=== PATIENT | female | born 2000 | race Caucasian/White ===

== ENCOUNTER 2019-03-02 11:28 | Inpatient (IN) ==
[2019-03-02] MEDS ORDERED: methylPREDNISolone 125 MG/2 ML VIAL IV STA (12:03)
[2019-03-02] MEDS ORDERED: ALBUT/IPRATROP 3MG/0.5MG NEB 3 ML VIAL INH STA (12:03)
[2019-03-02] MEDS ORDERED: ALBUT/IPRATROP 3MG/0.5MG NEB 3 ML VIAL NEB STA (12:37)
[2019-03-02] MEDS ORDERED: LEVALBUTEROL HCL 1.25 MG/3 ML NEB NEB STA (12:37)
[2019-03-02 13:07] LABS: Basophils # (auto) 0.03 K/uL (0-0.2); Basophils % (auto) 0.2 %; Eosinophils # (auto) 0.01 K/uL (0-0.5); Eosinophils % (auto) 0.1 %; Hematocrit (blood only) 38.4 % (37-47); Hemoglobin 13.1 g/dL (12.0-16.0); Immature Granulocytes # (auto) 0.06 K/uL (0.00-0.02); Immature Granulocytes % (auto) 0.5 %; Lymphocytes % (auto) 11.5 %; Mean Corpuscular Hgb Conc 34.1 g/dL (32-36); Mean Corpuscular Volume 87.9 fL (80-100); Mean Platelet Volume 9.2 fL (7.4-10.4); Monocytes # (auto) 0.68 K/uL (0.11-0.59); Monocytes % (auto) 5.2 %; Neutrophils # (auto) 10.81 K/uL (1.4-6.5); Neutrophils % (auto) 82.5 %; Platelet Count 255 K/uL (130-400); RDW Coefficient of Variation 13.1 % (11.5-14.5); RDW Standard Deviation 42.2 fL (36.4-46.3); Red Blood Count 4.37 M/uL (4.2-5.4); White Blood Count 13.09 K/uL (4.8-10.8)
[2019-03-02] MEDS ORDERED: ACETAMINOPHEN 1,000 MG/100 ML VIAL IV STA (13:08)
[2019-03-02 13:21] LABS: Partial Thromboplastin Time 28.1 Seconds (21.0-31.0); Prothrombin Time 9.9 Seconds (9.0-12.0)
--- NOTE | 2019-03-02 13:22 | Emergency Department Note ---
History of Present Illness General Chief complaint: Fever Stated complaint: sob Time Seen by Provider: 03/02/19 11:48 History of Present Illness Maximum Pain Intensity: 2 18-year-old female who presents to the emergency department with complaint of sore throat, fever, productive cough and shortness of breath. The patient was referred here from [facility] for further evaluation. The patient reports that she had a fever this morning at her appointment. A chest x -ray was performed, and the patient was told that she may have a little bit of fluid in the lung. The patient does not recall where it was. She reports that lab work was also performed, and was told that she had an elevated d-dimer. They became concerned for a blood clot in the lung, and called 911 for transport to the emergency department. The patient does take oral contraceptives. She denies tobacco use. She has not had any other recent prolonged inactivity or travel. She has not noticed any swelling of the legs, nor has she been coughing up blood. The patient reports multiple sick contacts. The patient reports that she started to get sick last weekend, over 1 week ago. Her symptoms started with generalized sore throat that then developed into a cough last Saturday, or 5 days ago. The patient denies any history of asthma or other lung disease. She has not had any prior history of blood clots. She denies history of heart disease. She currently rates her discomfort a 2 out of 10. The patient has not taken any [id number]-huxbrma medications for her symptoms. Home Medications Home Medications Medication Instructions Recorded Confirmed Type Control 1 tab PO DAILY 03/02/19 03/02/19 History Allergies Allergy/AdvReac Type Severity Reaction Status Date / Time No Known Allergies Allergy Unverified 03/02/19 13:06 Past Med/Surg History Medical History PCOS (polycystic ovarian syndrome) Surgical History No significant past surgical history Family History Grandfather (Maternal) Stroke Social History marital status: Single current occupational status: student Feels Safe at Home: Yes Smoking Status: Never smoker Hx Alcohol Use: No Hx Substance Use: No Review of Systems 10 system review was performed and was negative except for pertinent positives and negatives as indicated in history of present illness Physical Exam Vital Signs Vital Signs - 24 hr 03/02/19 11:28 03/02/19 12:41 03/02/19 13:25 Temperature 38.2 C H Temperature Source Oral Sepsis Recent Fever Within 48 Hours No Sepsis Action Taken by Nursing No Action Required Pulse Rate 138 H Pulse Rate [Right Radial] 131 H 130 H Pulse Rate from SpO2 Sensor Pulse Rhythm [Right Radial] Pulse Strength [Right Radial] Respiratory Rate 24 18 24 Respiratory Effort / Characteristics Non-Labored Non-Labored Spontaneous Non-Labored Respiratory Depth Normal Normal Respiratory Pattern Blood Pressure 136/85 Blood Pressure [Left Arm] 124/80 Blood Pressure Mean 102 Blood Pressure Mean [Left Arm] 94 Blood Pressure Position [Left Arm] Pulse Oximetry 96 100 97 Oxygen Delivery Method Room Air Room Air Room Air 03/02/19 15:21 03/02/19 16:00 03/02/19 16:01 Temperature 36.8 C Temperature Source Oral Sepsis Recent Fever Within 48 Hours Sepsis Action Taken by Nursing Pulse Rate 110 H 106 H Pulse Rate [Right Radial] 103 H Pulse Rate from SpO2 Sensor 111 H 107 H Pulse Rhythm [Right Radial] Regular Pulse Strength [Right Radial] Normal Respiratory Rate 20 34 H 25 H Respiratory Effort / Characteristics Non-Labored Spontaneous Respiratory Depth Normal Respiratory Pattern Regular Blood Pressure 117/79 Blood Pressure [Left Arm] 124/83 Blood Pressure Mean 91 Blood Pressure Mean [Left Arm] 96 Blood Pressure Position [Left Arm] Lying Pulse Oximetry 96 96 96 Oxygen Delivery Method Room Air Room Air Room Air 03/02/19 16:30 03/02/19 16:31 03/02/19 17:00 Temperature Temperature Source Sepsis Recent Fever Within 48 Hours Sepsis Action Taken by Nursing Pulse Rate 107 H 107 H 105 H Pulse Rate [Right Radial] Pulse Rate from SpO2 Sensor 110 H 105 H Pulse Rhythm [Right Radial] Pulse Strength [Right Radial] Respiratory Rate 32 H 28 H 26 H Respiratory Effort / Characteristics Respiratory Depth Respiratory Pattern Blood Pressure 124/79 123/77 Blood Pressure [Left Arm] Blood Pressure Mean 94 92 Blood Pressure Mean [Left Arm] Blood Pressure Position [Left Arm] Pulse Oximetry 96 96 97 Oxygen Delivery Method Room Air Room Air Room Air 03/02/19 17:01 Temperature Temperature Source Sepsis Recent Fever Within 48 Hours Sepsis Action Taken by Nursing Pulse Rate 108 H Pulse Rate [Right Radial] Pulse Rate from SpO2 Sensor Pulse Rhythm [Right Radial] Pulse Strength [Right Radial] Respiratory Rate 26 H Respiratory Effort / Characteristics Respiratory Depth Respiratory Pattern Blood Pressure Blood Pressure [Left Arm] Blood Pressure Mean Blood Pressure Mean [Left Arm] Blood Pressure Position [Left Arm] Pulse Oximetry 98 Oxygen Delivery Method Room Air CONSTITUTIONAL: Healthy and well nourished. Alert and oriented X 3. Patient does appear acutely ill or toxic. HEENT: Normocephalic, atraumatic. Pupils equal, round and reactive. Ears and nares are clear. Examination of the oropharynx shows minimal posterior pharyngeal erythema without tonsillar hypertrophy or exudates. NECK: Full active range of motion without discomfort. LYMPHATICS: No cervical chain adenopathy. RESPIRATORY: Clear to auscultation bilaterally with no wheezing, crackles, rhonchi or stridor. Patient appears in mild respiratory distress, and is not able to complete full sentences without taking a breath. CARDIOVASCULAR: Tachycardic with no obvious murmurs, rubs or gallops. GASTROINTESTINAL: Bowel sounds present in all quadrants. MUSCULOSKELETAL: Full range of motion of all joints without discomfort. No p eripheral edema noted. INTEGUMENTARY: No rash or other significant dermatologic conditions noted. HEMATOLOGIC: No ecchymosis or petechiae. PSYCHIATRIC: Positive affect. NEUROLOGIC: No focal neurologic deficits noted. Course Patient history and physical exam were performed. Nurse's notes were reviewed. Vital signs were reviewed to show an oral temperature of 38.2 C. She is also tachycardic at 152 bpm, and respiratory rate of 24 bpm. Her O2 saturation on room air is 96%. The patient does appear in mild respiratory distress. IV access was established, and labs were drawn. The patient was administered a unit dose DuoNeb treatment with moderate relief of symptoms. She was also hydrated with a liter normal saline, and administered IV Tylenol for her fever. After orders were placed, but I was presented with lab work from [facility], showing a mild leukocytosis with a white count of 12.6. Platelet count was normal at 267. Review of additional lab work from the emergency department shows a similar leukocytosis with left shift and bandemia. She is mildly hyponatremic at 132. [id number] lactate and troponin are normal. Urinalysis is suggestive of infection. Urine cultures are pending. CT chest angiography shows evidence for multifocal pneumonia. No obvious filling defects consistent with pulmonary emboli are noted. Blood cultures were ordered, and the patient was administered IV Zosyn and vancomycin as recommended by Dr. Zacarias, [facility] hospitalist. Findings were also discussed with Dr. Rey, ED attending physician. I also discussed the case with the patient, as well as her mother, Elis ([phone]), who was also in agreement with admission. The patient's HEAT TREATER also contacted me via telephone conversation by me that she is currently on oral contraceptives for PCOS, which the patient did not advise me on initial exam. She wanted to make certain that the CT scan did not show any pulmonary emboli. I did explain that the CT scan does show evidence for multifocal pneumonia, with no obvious pulmonary emboli. She has requested that the patient did not take any oral contraceptives until she follows up with her upon return home during break. Please see hospitalist dictations for further treatment and final disposition. Administered Medications Vancomycin HCl 1,250 mg/ (Sodium Chloride) 525 mls @ 200 mls/hr IV NOW ONE Stop: 03/02/19 17:25 Last Admin: 03/02/19 16:32 Dose: 200 mls/hr Documented by: [id number] Ioversol (Optiray 320 125ml) 120 ml IV ONCE PRN PRN Reason: Interaction Checking Stop: 03/06/19 13:50 Last Admin: 03/02/19 13:51 Dose: 120 ml Documented by: [id number] Discontinued Medications Acetaminophen (Ofirmev) Confirm Administered Dose 1,000 mg IV .STK-MED ONE Stop: 03/02/19 13:43 Last Admin: 03/02/19 14:33 Dose: Not Given Documented by: [id number] Albuterol (Duoneb) 3 ml INH NOW STA Stop: 03/02/19 12:04 Last Admin: 03/02/19 14:33 Dose: Not Given Documented by: [id number] Albuterol (Duoneb) 3 ml NEB NOW STA Stop: 03/02/19 12:38 Last Admin: 03/02/19 12:39 Dose: Not Given Documented by: [id number] Acetaminophen (Ofirmev) 1,000 mg in 100 mls @ 400 mls/hr IV NOW STA Stop: 03/02/19 13:22 Last Infusion: 03/02/19 13:59 Dose: 0 mls/hr Documented by: [id number] Admin: 03/02/19 13:44 Dose: 400 mls/hr Documented by: [id number] Piperacillin Sod/Tazobactam Sod (Zosyn) 4.5 gm in 120 mls @ 240 mls/hr IV NOW ONE Stop: 03/02/19 15:17 Last Infusion: 03/02/19 15:49 Dose: 0 mls/hr Documented by: [id number] Admin: 03/02/19 15:19 Dose: 240 mls/hr Documented by: [id number] Levalbuterol HCl (Xopenex 1.25mg/3ml Neb) 1.25 mg NEB NOW STA Stop: 03/02/19 12:38 Last Admin: 03/02/19 12:40 Dose: 1.25 mg Documented by: [id number] Methylprednisolone (Solumedrol) 125 mg IV NOW STA Stop: 03/02/19 12:04 Last Admin: 03/02/19 13:20 Dose: 125 mg Documented by: [id number] Medical Decision Making Medical Records Attestation: I reviewed the patient's medical records. Home Medications Current Medication List: was personally reviewed by me Laboratory Data Attestation: I reviewed the patient's lab results. Result diagrams: 03/02/19 12:56 03/02/19 12:56 Lab Results 03/02/19 03/02/19 03/02/19 Range/Units 12:56 12:56 12:56 WBC 13.09 H (4.8-10.8) K/uL RBC 4.37 (4.2-5.4) M/uL Hgb 13.1 (12.0-16.0) g/dL Hct 38.4 (37-47) % MCV 87.9 (80-100) fL MCH 30.0 (25-34) pg MCHC 34.1 (32-36) g/dL RDW Std Deviation 42.2 (36.4-46.3) fL RDW Coeff of Az 13.1 (11.5-14.5) % Plt Count 255 (130-400) K/uL MPV 9.2 (7.4-10.4) fL Immature Gran % (Auto) 0.5 % Neut % (Auto) 82.5 % Lymph % (Auto) 11.5 % Cameron % (Auto) 5.2 % Eos % (Auto) 0.1 % Baso % (Auto) 0.2 % Immature Gran # (Auto) 0.06 H (0.00-0.02) K/uL Neut # (Auto) 10.81 H (1.4-6.5) K/uL Lymph # (Auto) 1.50 (1.2-3.4) K/uL Cameron # (Auto) 0.68 H (0.11-0.59) K/uL Eos # (Auto) 0.01 (0-0.5) K/uL Baso # (Auto) 0.03 (0-0.2) K/uL PT 9.9 (9.0-12.0) Seconds INR 1.0 (0.9-1.1) APTT 28.1 (21.0-31.0) Seconds PTT Ratio 1.0 Sodium 132 L (136-145) mmol/L Potassium 4.1 (3.5-5.1) mmol/L Chloride 102 (98-107) mmol/L Carbon Dioxide 23 (21-32) mmol/L Anion Gap 7.0 (3-11) BUN 6 L (7-18) mg/dl Creatinine 0.74 (0.6-1.2) mg/dl Est Cr Clr Drug Dosing Not Reportable Est GFR ( Amer) 136.1 Est GFR (Non-Af Amer) 117.4 BUN/Creatinine Ratio 8.1 L (10-20) Glucose 112 H (70-99) mg/dl POC Lactic Acid [place] (0.90-1.70) mmol/L Calcium 9.0 (8.5-10.1) mg/dl Total Bilirubin 0.7 (0.2-1) mg/dl AST 27 (15-37) U/L ALT 23 (12-78) U/L Alkaline Phosphatase 115 (45-117) U/L Troponin I < 0.015 (0-0.045) ng/ml Total Protein 8.0 (6.4-8.2) gm/dl Albumin 3.3 L (3.4-5.0) gm/dl Globulin 4.7 H (2.5-4.0) gm/dl Albumin/Globulin Ratio 0.7 L (0.9-2) Urine Color Urine Appearance (Clear) Urine pH (4.5-7.5) Ur Specific [place] (1.000-1.030) Urine Protein (Negative) Urine Glucose (UA) (Negative) Urine Ketones (Negative) Urine Blood (Negative) Urine Nitrite (Negative) Urine Bilirubin (Negative) Urine Urobilinogen (Negative) Ur Leukocyte Esterase (Negative) Urine WBC (Auto) (0-5) /hpf Urine RBC (Auto) (0-4) /hpf U Hyaline Cast (Auto) (0-5) /lpf U Epithel Cells (Auto) (0-5) /lpf Urine Bacteria (Auto) (Negative) Ur Renal Epithelial Cell Lyme Disease IgG Ab (Negative) Lyme Disease IgM Ab (Negative) Influenza Type A (PCR) (Neg) Influenza Type B (PCR) (Neg) 03/02/19 03/02/19 03/02/19 Range/Units 12:57 13:04 13:33 WBC (4.8-10.8) K/uL RBC (4.2-5.4) M/uL Hgb (12.0-16.0) g/dL Hct (37-47) % MCV (80-100) fL MCH (25-34) pg MCHC (32-36) g/dL RDW Std Deviation (36.4-46.3) fL RDW Coeff of Az (11.5-14.5) % Plt Count (130-400) K/uL MPV (7.4-10.4) fL Immature Gran % (Auto) % Neut % (Auto) % Lymph % (Auto) % Cameron % (Auto) % Eos % (Auto) % Baso % (Auto) % Immature Gran # (Auto) (0.00-0.02) K/uL Neut # (Auto) (1.4-6.5) K/uL Lymph # (Auto) (1.2-3.4) K/uL Cameron # (Auto) (0.11-0.59) K/uL Eos # (Auto) (0-0.5) K/uL Baso # (Auto) (0-0.2) K/uL PT (9.0-12.0) Seconds INR (0.9-1.1) APTT (21.0-31.0) Seconds PTT Ratio Sodium (136-145) mmol/L Potassium (3.5-5.1) mmol/L Chloride (98-107) mmol/L Carbon Dioxide (21-32) mmol/L Anion Gap (3-11) BUN (7-18) mg/dl Creatinine (0.6-1.2) mg/dl Est Cr Clr Drug Dosing Est GFR ( Amer) Est GFR (Non-Af Amer) BUN/Creatinine Ratio (10-20) Glucose (70-99) mg/dl POC Lactic Acid [place] 1.27 (0.90-1.70) mmol/L Calcium (8.5-10.1) mg/dl Total Bilirubin (0.2-1) mg/dl AST (15-37) U/L ALT (12-78) U/L Alkaline Phosphatase (45-117) U/L Troponin I (0-0.045) ng/ml Total Protein (6.4-8.2) gm/dl Albumin (3.4-5.0) gm/dl Globulin (2.5-4.0) gm/dl Albumin/Globulin Ratio (0.9-2) Urine Color Urine Appearance (Clear) Urine pH (4.5-7.5) Ur Specific [place] (1.000-1.030) Urine Protein (Negative) Urine Glucose (UA) (Negative) Urine Ketones (Negative) Urine Blood (Negative) Urine Nitrite (Negative) Urine Bilirubin (Negative) Urine Urobilinogen (Negative) Ur Leukocyte Esterase (Negative) Urine WBC (Auto) (0-5) /hpf Urine RBC (Auto) (0-4) /hpf U Hyaline Cast (Auto) (0-5) /lpf U Epithel Cells (Auto) (0-5) /lpf Urine Bacteria (Auto) (Negative) Ur Renal Epithelial Cell Lyme Disease IgG Ab Negative (Negative) Lyme Disease IgM Ab Negative (Negative) Influenza Type A (PCR) Neg for Influ A (Neg) Influenza Type B (PCR) Neg for Influ B (Neg) 03/02/19 Range/Units 13:33 WBC (4.8-10.8) K/uL RBC (4.2-5.4) M/uL Hgb (12.0-16.0) g/dL Hct (37-47) % MCV (80-100) fL MCH (25-34) pg MCHC (32-36) g/dL RDW Std Deviation (36.4-46.3) fL RDW Coeff of Az (11.5-14.5) % Plt Count (130-400) K/uL MPV (7.4-10.4) fL Immature Gran % (Auto) % Neut % (Auto) % Lymph % (Auto) % Cameron % (Auto) % Eos % (Auto) % Baso % (Auto) % Immature Gran # (Auto) (0.00-0.02) K/uL Neut # (Auto) (1.4-6.5) K/uL Lymph # (Auto) (1.2-3.4) K/uL Cameron # (Auto) (0.11-0.59) K/uL Eos # (Auto) (0-0.5) K/uL Baso # (Auto) (0-0.2) K/uL PT (9.0-12.0) Seconds INR (0.9-1.1) APTT (21.0-31.0) Seconds PTT Ratio Sodium (136-145) mmol/L Potassium (3.5-5.1) mmol/L Chloride (98-107) mmol/L Carbon Dioxide (21-32) mmol/L Anion Gap (3-11) BUN (7-18) mg/dl Creatinine (0.6-1.2) mg/dl Est Cr Clr Drug Dosing Est GFR ( Amer) Est GFR (Non-Af Amer) BUN/Creatinine Ratio (10-20) Glucose (70-99) mg/dl POC Lactic Acid [place] (0.90-1.70) mmol/L Calcium (8.5-10.1) mg/dl Total Bilirubin (0.2-1) mg/dl AST (15-37) U/L ALT (12-78) U/L Alkaline Phosphatase (45-117) U/L Troponin I (0-0.045) ng/ml Total Protein (6.4-8.2) gm/dl Albumin (3.4-5.0) gm/dl Globulin (2.5-4.0) gm/dl Albumin/Globulin Ratio (0.9-2) Urine Color Dark Yellow Urine Appearance Clear (Clear) Urine pH 7.0 (4.5-7.5) Ur Specific [place] 1.026 (1.000-1.030) Urine Protein 2+ H (Negative) Urine Glucose (UA) Negative (Negative) Urine Ketones 3+ H (Negative) Urine Blood Negative (Negative) Urine Nitrite Positive A (Negative) Urine Bilirubin 1+ H (Negative) Urine Urobilinogen Positive H (Negative) Ur Leukocyte Esterase 1+ H (Negative) Urine WBC (Auto) 5-10 H (0-5) /hpf Urine RBC (Auto) 10-30 H (0-4) /hpf U Hyaline Cast (Auto) 5-10 H (0-5) /lpf U Epithel Cells (Auto) >30 H (0-5) /lpf Urine Bacteria (Auto) 1+ H (Negative) Ur Renal Epithelial Cell Not Reportable Lyme Disease IgG Ab (Negative) Lyme Disease IgM Ab (Negative) Influenza Type A (PCR) (Neg) Influenza Type B (PCR) (Neg) Imaging Data Attestation: I personally reviewed and interpreted this imaging study as follows: My Impression: CT angiography of the chest shows multifocal pneumonia without obvious pulmonary emboli. No pericarditis or pneumothorax appreciated. Radiologist report was also reviewed. Radiologist's Impression: CT ANGIOGRAPHY OF THE CHEST, PULMONARY EMBOLUS PROTOCOL CLINICAL HISTORY: Dyspnea COMPARISON STUDY: No previous studies for comparison. TECHNIQUE: Following IV administration of 120 mL of Optiray-320, helical axial images of the chest were obtained utilizing the pulmonary embolus protocol. Maximal intensity projections and sagittal and coronal reformats were viewed on an independent 3D workstation. IV contrast was administered without complication. Automated exposure control was utilized for the study. A dose lowering technique was utilized adhering to the principles of ALARA. CT DOSE: 202.50 mGycm FINDINGS: This exam is compromised by respiratory motion. No central or lobar pulmonary emboli are identified. The segmental and subsegmental pulmonary arteries are suboptimally assessed given respiratory motion. The size of the heart is normal. There is no thoracic aortic dissection. No enlarged thoracic lymph nodes are present. There is no pneumothorax or pleural effusion. Note is made of multiple foci of consolidation within the right middle lobe, bilateral lower lobe as well as the lingular. There are minimal right upper lobe airspace opacities. There is no cavitation. Lungs are suboptimally assessed given respiratory motion. Bony thorax is unremarkable. Upper abdomen is unremarkable. IMPRESSION: 1. No central or lobar pulmonary emboli. Segmental and subsegmental pulmonary arteries suboptimally assessed given significant respiratory motion. 2. Findings suggestive of multifocal pneumonia involving the bilateral lower lobes, right middle lobe and lingula. Blood Pressure Blood Pressure Findings: Normal blood pressure MDM Narrative Patient presents to the emergency department with complaint of upper respiratory symptoms for over a week. The patient is currently tachycardic and febrile. She is maintaining O2 saturations on room air, but does have mild respiratory distress. This did seem to be mostly alleviated with IV corticosteroids and a unit dose DuoNeb treatment. CT angiography of the chest did show evidence for multifocal pneumonia, and no obvious pulmonary emboli. Given the patient's respiratory distress, fever and tachycardia, with multifocal pneumonia noted on CT, I do feel that the patient warrants further hospital management. Although the patient is febrile, her lactate is normal, therefore I do not suspect sepsis. Impression & Plan Multifocal pneumonia, Tachycardia, Acute hyponatremia, Acute respiratory distress Discharge Plan Visit Data Chief Complaint: Fever Stated Complaint: sob ED Provider: Juanjo Rey ED Midlevel Provider: Leighton Carmichael Discharge Problem: Multifocal pneumonia, Tachycardia, Acute hyponatremia, Acute respiratory distress Forms Stand Alone Forms: My [employer] Prescriptions Prescriptions: No Action Control 1 tab PO DAILY RF: 0
[2019-03-02 13:30] LABS: Albumin Level 3.3 gm/dl (3.4-5.0); BUN Creatinine Ratio 8.1 (10-20); Blood Urea Nitrogen 6 mg/dl (7-18); Carbon Dioxide 23 mmol/L (21-32); Chloride 102 mmol/L (98-107); Est GFR (African American) 136.1; Est GFR (Non-African American) 117.4; Glucose 112 mg/dl (70-99); Potassium 4.1 mmol/L (3.5-5.1); Sodium 132 mmol/L (136-145)
[2019-03-02 13:36] LABS: Alanine Aminotransferase 23 U/L (12-78); Albumin Globulin Ratio 0.7 (0.9-2); Alkaline Phosphatase 115 U/L (45-117); Aspartate Aminotransferase 27 U/L (15-37); Bilirubin,Total 0.7 mg/dl (0.2-1); Globulin 4.7 gm/dl (2.5-4.0); Troponin I < 0.015 ng/ml (0-0.045)
[2019-03-02] MEDS ORDERED: ACETAMINOPHEN 1000 MG/100 ML IV IV ONE (13:42)
[2019-03-02 13:48] LABS: Appearance Urine Clear (Clear); Bacteria Urine Automated 1+ (Negative); Blood Urine Negative (Negative); Color Urine Dark Yellow; Epithelial Cell Urine Auto >30 /lpf (0-5); Glucose Urine UA Negative (Negative); Leukocyte Esterase Urine 1+ (Negative); Nitrite Urine Positive (Negative); Protein Urine 2+ (Negative); Specific Gravity Urine 1.026 (1.000-1.030); Urobilinogen Urine Positive (Negative)
[2019-03-02] MEDS ORDERED: OPTIRAY 320 125ml IV PRN (13:51)
[2019-03-02 13:54] LABS: Bilirubin Urine 1+ (Negative); Ketones Urine 3+ (Negative)
--- NOTE | 2019-03-02 14:05 | CT Scan Report ---
CT ANGIOGRAPHY OF THE CHEST, PULMONARY EMBOLUS PROTOCOL CLINICAL HISTORY: Dyspnea COMPARISON STUDY: No previous studies for comparison. TECHNIQUE: Following IV administration of 120 mL of Optiray-320, helical axial images of the chest we re obtained utilizing the pulmonary embolus protocol. Maximal intensity projections and sagittal and coronal reformats were viewed on an independent 3D workstation. IV contrast was administered withou t complication. Automated exposure control was utilized for the study. A dose lowering technique wa s utilized adhering to the principles of ALARA. CT DOSE: 202.50 mGycm FINDINGS: This exam is compromised by respiratory motion. No central or lobar pulmonary emboli are i dentified. The segmental and subsegmental pulmonary arteries are suboptimally assessed given respirat ory motion. The size of the heart is normal. There is no thoracic aortic dissection. No enlarged thor acic lymph nodes are present. There is no pneumothorax or pleural effusion. Note is made of multiple foci of consolidation within the right middle lobe, bilateral lower lobe as well as the lingular. The re are minimal right upper lobe airspace opacities. There is no cavitation. Lungs are suboptimally as sessed given respiratory motion. Bony thorax is unremarkable. Upper abdomen is unremarkable. IMPRESSION: 1. No central or lobar pulmonary emboli. Segmental and subsegmental pulmonary arteries suboptimally a ssessed given significant respiratory motion. 2. Findings suggestive of multifocal pneumonia involving the bilateral lower lobes, right middle lobe and lingula. Electronically signed by: Cash Wellington M.D. 03/02/2019 2:04 PM
[2019-03-02 14:07] LABS: Lyme Ab IgG w/WB Rflx Negative (Negative)
[2019-03-02 14:08] LABS: Lyme Ab IgM w/WB Rflx Negative (Negative)
[2019-03-02 14:29] LABS: Influenza A virus by PCR Neg for Influ A (Neg); Influenza B virus by PCR Neg for Influ B (Neg)
[2019-03-02] MEDS ORDERED: PIPERACILL/TAZOBAC CONSULT ACTIVE PRN ×2 (14:48→18:00)
[2019-03-02] MEDS ORDERED: VANCOMYCIN CONSULT ACTIVE PRN ×2 (14:48→18:00)
[2019-03-02] MEDS ORDERED: VANCOMYCIN HCL 1,250 MG in SODIUM CHLORIDE 0.9% 500 ML IV ONE (14:48)
[2019-03-02] MEDS ORDERED: PIPERACILLIN/TAZOBACTAM 4.5 GM/120 ML BAG IV ONE (14:48)
--- NOTE | 2019-03-02 16:45 | History & Physical Report ---
Date of Service March 02, 2019 Assessment & Plan (1) Multifocal pneumonia: Noted on CXR Tachycardic with SOB Started on vanco/zosyn in the ED, will continue Elevated WBC, febrile CTA neg for PE Lactic acid WNL Lyme and flu neg Nebs and steroids in the ED, will hold on further steroids given no hx of asthma PRN nebs (2) DVT prophylaxis: Ambulation History of Present Illness Primary Care Provider: [facility] 18 y/o F c/o fever and SOB. Pt states she has been having fevers and cough since early last week. She thought it was just a cold and did not seek care at that time. It continued to worsen over the weekend with some SOB noted and decreased appetite. She was on her way to an appt for this with [facility] and had difficulty walking there due to worsening SOB. She was seen at [facility] and PNA was noted on a CXR. Given her SOB, she was sent to the ED for further eval. No n/v. Pt has never been sick like this in the past. No recent travel other than to her parents' home and [place]. No sick contacts. Pt denies chest pain, abd pain, n/v/c/d, LE pain or swelling. Pt is s/p IVF and abx, nebs and steroids in the ED. She still feels generally unwell, but no further SOB and overall improved. Allergies Allergy/AdvReac Type Severity Reaction Status Date / Time No Known Allergies Allergy Unverified 03/02/19 13:06 Home Medications Home Medications Medication Instructions Recorded Confirmed Type Control 1 tab PO DAILY 03/02/19 03/02/19 History Past Med/Surg History Medical History PCOS (polycystic ovarian syndrome) Surgical History No significant past surgical history Family History Grandfather (Maternal) Stroke Social History marital status: Single current occupational status: student Feels Safe at Home: Yes Smoking Status: Never smoker Hx Alcohol Use: No Hx Substance Use: No Review of Systems Review of Systems: Pertinent positives and negatives reviewed in HPI--all others negative Physical Exam Constitutional: WD/WN, vitals as above Eyes: normal visual bowers by confrontation and + anicteric sclerae Neck: normal visual inspection and trachea midline Respiratory: normal respiratory effort; no respiratory distress Auscultation: + crackles; no wheezes Cardiovascular: Rate/Rhythm: regular rhythm and + tachycardic Gastrointestinal (Abdomen): Inspection/Auscultation: abdomen not distended Percussion/Palpation: abdomen soft; abdomen nontender Musculoskeletal: Head/Neck/Chest: normocephalic and head atraumatic negative for edema, peripheral pulses intact Skin: no rashes, warm and dry Neurologic: awake; not confused Speech / Cognition: normal speech Psychiatric: A+Ox3, euthymic affect Results & Data Vital Signs (Past 12 Hours) Vital Signs Temp Pulse Pulse Resp BP BP Pulse Ox 03/02/19 15:21 36.8 C 103 H 20 124/83 96 03/02/19 13:25 130 H 24 124/80 97 03/02/19 12:41 131 H 18 100 03/02/19 11:28 38.2 C H 138 H 24 136/85 96 Diagnostic Findings CTA: neg for PE, noted for multifocal PNA ECG Rhythm: sinus tachycardia Code Status & VTE Plan Code Status Full code VTE Prophylaxis Plan VTE Prophylaxis will be ordered: Yes PG Care Time/CCT Total # of Minutes Spent Total Time Spent with Patient: Total time spent is greater than 50% in coordination of care (as documented) at patient's floor/unit and/or counseling patient:
[2019-03-02] MEDS ORDERED: ACETAMINOPHEN 325 MG TAB PO PRN (18:00)
[2019-03-02] MEDS ORDERED: ONDANSETRON INJ 2 MG/ML 2 ML VIAL IV PRN (18:00)
[2019-03-02] MEDS ORDERED: MAGNESIUM HYDROXIDE SUSP 30 ML UDC PO PRN (18:00)
[2019-03-02] MEDS: ALBUT/IPRATROP 3MG/0.5MG NEB 3 ML VIAL NEB SCH ×2 (19:23→22:55)
[2019-03-02] MEDS: SODIUM CHLORIDE 0.45 % 1,000 ML IV SCH (19:23)
[2019-03-02] MEDS: PIPERACILLIN/TAZOBACTAM 3.375 GM in DEXTROSE 5% 100 ML IV SCH (20:03)
--- NOTE | 2019-03-02 20:13 | Pharmacy Report ---
Pharmacy Abx Dose Short Note - Date of Service March 02, 2019 - Assessment & Plan Assessment: 18 yo Female receiving VANC/ZOSYN-IV for treatment of PULMONARY INFECTION * Day # 1 of antimicrobial therapy. Plan: Vanc-IV: * Estimated pharmacokinetics: Vd~0.7 L/kg, Ke~0.104 hr-1, T 1/2~6.6 hrs * LOADING DOSE: VANC 1250mg (~23mg/kg) IV x 1, then * MAINTENANCE DOSE: VANC 1000mg (~18mg/kg) IV q 8 hours. * Goal trough level: 15 to 20 mcg/mL * VANC Trough level ordered @ [facility] prior to 03/03 1400 dose Piperacillin/Tazobactam Extended Infusion: 4.5g IV bolus, then 3.375 IV q 8 hrs for est CrCL > 20mL/min (4-6 hrs after load). Pharmacy will continue to follow and will adjust dose/frequency as necessary. Thank you.
[2019-03-02] MEDS: VANCOMYCIN HCL 1,000 MG in SODIUM CHLORIDE 0.9% 250 ML IV SCH (21:04)
[2019-03-03] MEDS: ALBUT/IPRATROP 3MG/0.5MG NEB 3 ML VIAL NEB SCH ×6 (03:07→23:09)
[2019-03-03] MEDS: PIPERACILLIN/TAZOBACTAM 3.375 GM in DEXTROSE 5% 100 ML IV SCH (04:12)
[2019-03-03] MEDS: VANCOMYCIN HCL 1,000 MG in SODIUM CHLORIDE 0.9% 250 ML IV SCH (06:03)
[2019-03-03 06:13] LABS: Basophils # (auto) 0.02 K/uL (0-0.2); Basophils % (auto) 0.2 %; Hematocrit (blood only) 34.1 % (37-47); Hemoglobin 11.9 g/dL (12.0-16.0); Immature Granulocytes # (auto) 0.03 K/uL (0.00-0.02); Immature Granulocytes % (auto) 0.3 %; Lymphocytes # (auto) 1.01 K/uL (1.2-3.4); Lymphocytes % (auto) 9.9 %; Mean Corpuscular Hemoglobin 31.3 pg (25-34); Mean Corpuscular Hgb Conc 34.9 g/dL (32-36); Mean Corpuscular Volume 89.7 fL (80-100); Mean Platelet Volume 9.1 fL (7.4-10.4); Monocytes % (auto) 4.9 %; Neutrophils % (auto) 84.7 %; Platelet Count 282 K/uL (130-400); RDW Standard Deviation 41.2 fL (36.4-46.3); White Blood Count 10.16 K/uL (4.8-10.8)
[2019-03-03 06:50] LABS: BUN Creatinine Ratio 12.9 (10-20); Blood Urea Nitrogen 6 mg/dl (7-18); Calcium 8.7 mg/dl (8.5-10.1); Carbon Dioxide 23 mmol/L (21-32); Chloride 106 mmol/L (98-107); Creatinine Clr Calc Pharmacy 146.1 ml/min; Est GFR (African American) > 150.0; Est GFR (Non-African American) 141.2; Glucose 161 mg/dl (70-99); Sodium 137 mmol/L (136-145)
[2019-03-03] MEDS: SODIUM CHLORIDE 0.45 % 1,000 ML IV SCH ×2 (07:42→19:10)
[2019-03-03] MEDS ORDERED: BIRTH CONTROL PO SCH (09:00)
[2019-03-03] MEDS ORDERED: cefTRIAXone SODIUM 2,000 MG/70 ML BAG IV ONE (10:00)
[2019-03-03] MEDS ORDERED: VANCOMYCIN TROUGH ONE (13:30)
--- NOTE | 2019-03-03 13:30 | Hospitalist Progress Note ---
Date of Service March 03, 2019 Assessment & Plan (1) Multifocal pneumonia: Patient switched from Zosyn and vancomycin to doxycycline 100 mg IV twice daily and ceftriaxone 2 g IV every 24 to cover for community-acquired pneumonia. Tachycardic with SOB improving Continue IV fluid normal saline at 80 cc/h Follow-up blood cultures and urine cultures. IV fluid hydration 80 cc/h normal saline Supportive management. CTA neg for PE Lactic acid WNL Lyme and flu neg Nebs and steroids in the ED, will hold on further steroids given no hx of asthma PRN nebs Present on Admission?: Yes (2) Mitral valve prolapse: TTE done and shows left ventricular systolic function is normal. Normal diastolic function. There is borderline prolapse of the anterior mitral leaflet left. Please address with cardiology further recommendation. Troponin negative 0.015. Pt denies chest pain, but had chest pain on Saturday and Saturday. Most probably pericarditis. I discussed with Dr. Willson. Consulted cardiology. Empirically started for pericarditis Colchicine 0.6 mg BID for the first day and then 0.6mg PO daily. Also started ketorolac 15 mg Q12 h for 5 doses. Present on Admission?: Yes (3) UTI (urinary tract infection): Urine cx pending Pt is already on ceftriaxone for pneumonia which should cover for urinary tract infection. Once when urine culture sensitivity available please treat specifically. Present on Admission?: Yes (4) DVT prophylaxis: Ambulation Subjective Patient seen and examined at the bedside. Slowly improving. Cough is slowly improving with Mucinex and breathing treatments. Patient denies any chest pain. Patient denies fever, chills, abdominal pain, frequency, urgency. Patient also has urinary tract infection. Reviewed EKG with block and case maker and he recommended to proceed with echocardiogram. PT echocardiogram shows sinus rhythm with short AR interval and pericarditis. Echocardiogram shows left ventricular systolic function is normal. Normal diastolic function. There is a borderline prolapse of the anterior mitral leaflet. Review of Systems Review of Systems: All systems reviewed & are unremarkable except as noted in HPI & below Physical Exam Constitutional: WD/WN, vitals as above well developed and + ill appearing Eyes: PERRL, conjunctivae normal, anicteric sclerae ENMT: external ear and nose normal, oropharynx normal Neck: trachea midline, no thyromegaly Respiratory: Auscultation: + crackles and + wheezes Cardiovascular: Rate/Rhythm: + tachycardic Gastrointestinal (Abdomen): normal bowel sounds, soft, nontender, no hepatosplenomegaly Musculoskeletal: no cyanosis or clubbing, extremities motor strength 5/5 Skin: no rashes, warm and dry Neurologic: patellar DTR's 2+ bilat, sensation intact Genitourinary: no vaginal lesions, no adnexal mass Lymphatic: no cervical or axillary lymphadenopathy Results & Data Vital Signs (Past 12 Hours) Vital Signs Temp Pulse Resp BP Pulse Ox 03/03/19 11:07 112 H 18 97 03/03/19 07:08 36.4 C L 99 H 16 104/66 95 03/03/19 06:50 76 16 98 03/03/19 03:07 76 14 95 PG Care Time/CCT Total # of Minutes Spent Total Time Spent with Patient: Total time spent is greater than 50% in coordination of care (as documented) at patient's floor/unit and/or counseling patient:
[2019-03-03 13:45] LABS: Iron 112 mcg/dl (35-150); Total Iron Binding Capacity 271 mcg/dl (250-450)
[2019-03-03 14:57] LABS: Basophils # (auto) 0.04 K/uL (0-0.2); Basophils % (auto) 0.2 %; Hemoglobin 12.7 g/dL (12.0-16.0); Immature Granulocytes # (auto) 0.08 K/uL (0.00-0.02); Immature Granulocytes % (auto) 0.4 %; Lymphocytes # (auto) 2.17 K/uL (1.2-3.4); Lymphocytes % (auto) 12.2 %; Mean Corpuscular Hemoglobin 32.3 pg (25-34); Mean Corpuscular Volume 89.1 fL (80-100); Mean Platelet Volume 9.1 fL (7.4-10.4); Monocytes # (auto) 1.21 K/uL (0.11-0.59); Monocytes % (auto) 6.8 %; Neutrophils # (auto) 14.34 K/uL (1.4-6.5); Neutrophils % (auto) 80.4 %; Platelet Count 341 K/uL (130-400); RDW Standard Deviation 41.2 fL (36.4-46.3); Red Blood Count 3.93 M/uL (4.2-5.4); Reticulocytes # 0.04 10^6/uL (0.02-0.10); White Blood Count 17.84 K/uL (4.8-10.8)
[2019-03-03 15:00] LABS: Mean Corpuscular Hgb Conc 36.3 g/dL (32-36)
[2019-03-03 15:25] LABS: Folate (Folic Acid) 20.64 ng/ml (>5.38)
[2019-03-03] MEDS ORDERED: DOXYCYCLINE HYCLATE 100 MG CAP PO ONE (18:45)
[2019-03-03] MEDS: SODIUM CHLOR 7% 4 ML NEB NEB SCH (19:16)
[2019-03-03] MEDS: guaiFENesin 600 MG TABCR PO SCH (20:38)
[2019-03-03] MEDS ORDERED: SODIUM CHLORIDE 0.9% 1000ML 1,000 ML IV SCH (20:45)
[2019-03-03] MEDS ORDERED: DOXYCYCLINE HYCLATE 100 MG CAP PO SCH (21:00)
[2019-03-03] MEDS: KETOROLAC TROMETHAMINE 15 MG/ML VIAL IV SCH (21:50)
[2019-03-03] MEDS: COLCHICINE 0.6 MG TAB PO SCH (21:50)
[2019-03-04] MEDS: ALBUT/IPRATROP 3MG/0.5MG NEB 3 ML VIAL NEB SCH ×3 (03:26→11:19)
[2019-03-04] MEDS: DOXYCYCLINE HYCLATE 100 MG in DEXTROSE 5% 100 ML IV SCH ×2 (06:04→08:28)
[2019-03-04] MEDS: SODIUM CHLOR 7% 4 ML NEB NEB SCH (06:58)
[2019-03-04 07:19] LABS: Basophils # (auto) 0.03 K/uL (0-0.2); Basophils % (auto) 0.3 %; Eosinophils # (auto) 0.04 K/uL (0-0.5); Eosinophils % (auto) 0.3 %; Hematocrit (blood only) 33.2 % (37-47); Hemoglobin 11.6 g/dL (12.0-16.0); Immature Granulocytes # (auto) 0.06 K/uL (0.00-0.02); Immature Granulocytes % (auto) 0.5 %; Lymphocytes # (auto) 2.18 K/uL (1.2-3.4); Lymphocytes % (auto) 18.4 %; Mean Corpuscular Hemoglobin 32.1 pg (25-34); Mean Corpuscular Hgb Conc 34.9 g/dL (32-36); Monocytes # (auto) 0.69 K/uL (0.11-0.59); Monocytes % (auto) 5.8 %; Neutrophils # (auto) 8.82 K/uL (1.4-6.5); Neutrophils % (auto) 74.7 %; Platelet Count 308 K/uL (130-400); RDW Coefficient of Variation 13.3 % (11.5-14.5); Red Blood Count 3.61 M/uL (4.2-5.4); White Blood Count 11.82 K/uL (4.8-10.8)
[2019-03-04 07:50] LABS: Alanine Aminotransferase 37 U/L (12-78); Aspartate Aminotransferase 33 U/L (15-37); BUN Creatinine Ratio 18.2 (10-20); Blood Urea Nitrogen 12 mg/dl (7-18); Calcium 9.3 mg/dl (8.5-10.1); Carbon Dioxide 21 mmol/L (21-32); Chloride 106 mmol/L (98-107); Creatinine Clr Calc Pharmacy 111.8 ml/min; Est GFR (African American) 149.9; Est GFR (Non-African American) 129.4; Glucose 101 mg/dl (70-99); Potassium 4.3 mmol/L (3.5-5.1); Sodium 137 mmol/L (136-145)
[2019-03-04 07:55] LABS: Albumin Globulin Ratio 0.7 (0.9-2); Alkaline Phosphatase 94 U/L (45-117); Bilirubin,Total 0.5 mg/dl (0.2-1); Troponin I < 0.015 ng/ml (0-0.045)
[2019-03-04] MEDS: COLCHICINE 0.6 MG TAB PO SCH (08:34)
[2019-03-04] MEDS: guaiFENesin 600 MG TABCR PO SCH (08:34)
[2019-03-04] MEDS: KETOROLAC TROMETHAMINE 15 MG/ML VIAL IV SCH (08:44)
[2019-03-04] MEDS ORDERED: cefTRIAXone SODIUM 2,000 MG in DEXTROSE 5% 50 ML IV SCH (09:00)
--- NOTE | 2019-03-04 11:33 | Hospitalist Progress Note ---
Date of Service March 04, 2019 Assessment & Plan (1) Multifocal pneumonia: * Patient switched from Zosyn and vancomycin to doxycycline 100 mg IV twice daily and ceftriaxone 2 g IV every 24 to cover for community-acquired pneumonia. * Tachycardic with SOB improving * Continue IV fluid normal saline at 80 cc/h * Follow-up blood cultures and urine cultures. * IV fluid hydration 80 cc/h normal saline * Supportive management. * CTA neg for PE * Lactic acid WNL * Lyme and flu neg * Nebs and steroids in the ED, will hold on further steroids given no hx of asthma * PRN nebs (2) Mitral valve prolapse: * TTE done and shows left ventricular systolic function is normal. Normal diastolic function. There is borderline prolapse of the anterior mitral leaflet left. Please address with cardiology further recommendation. * Troponin negative 0.015. Pt denies chest pain, but had chest pain on Saturday and Saturday. Most probably pericarditis. I discussed with Dr. Willson. * Consulted cardiology * Empirically started for pericarditis Colchicine 0.6 mg BID for the first day and then 0.6mg PO daily. Also started ketorolac 15 mg Q12 h for 5 doses. (3) DVT prophylaxis: * Ambulation Subjective Patient evaluated at bedside this morning with mother and father present. Family and patient frustrated with lack of communication during this admission regarding testing and reasoning. Patient confirms she is feeling better. She denies any chest pain or shortness of breath at this time. She does admit to some palpitations but attributes it to albuterol use for breathing. Denies any h istory of asthma or sick contacts. Denies recent fevers, chills, abdominal pain, n/v/d/c, headache. Patient feels stable to be discharged home with her parents and to continue oral antibiotics with close follow-up with her primary provider. She is agreeable to continuing antibiotics and colchicine for pericarditis. Physical Exam Constitutional: WD/WN, vitals as above Eyes: PERRL, conjunctivae normal, anicteric sclerae Neck: trachea midline, no thyromegaly Respiratory: normal respiratory effort; no respiratory distress and no labored breathing Auscultation: lungs clear to auscultation bilaterally and + dim inished lung sounds Cardiovascular: Rate/Rhythm: regular rhythm and + tachycardic Heart Sounds: + cardiac rub (faint rub heard with patient sitting forward) Skin: no rashes, warm and dry Neurologic: PERRL, EOMI, accommodation nl, no face palsy, no dysarthria Psychiatric: A+Ox3, euthymic affect Results & Data Vital Signs (Past 12 Hours) Vital Signs Temp Pulse Pulse Resp BP Pulse Ox 03/04/19 11:19 108 H 16 94 03/04/19 08:14 36.6 C 120 H 16 118/72 95 03/04/19 06:59 104 H 16 95 03/04/19 03:27 110 H 16 95 03/04/19 00:24 107 H 03/04/19 00:16 36.7 C 120 H 18 111/71 95 PG Care Time/CCT Total # of Minutes Spent Total Time Spent with Patient: Total time spent is greater than 50% in coordination of care (as documented) at patient's floor/unit and/or counseling patient:
--- NOTE | 2019-03-04 11:43 | Discharge Summary ---
Date of Service March 04, 2019 Admission HPI Per Admitting Provider 18 y/o F c/o fever and SOB. Pt states she has been having fevers and cough since early last week. She thought it was just a cold and did not seek care at that time. It continued to worsen over the weekend with some SOB noted and decreased appetite. She was on her way to an appt for this with [facility] and had difficulty walking there due to worsening SOB. She was seen at [facility] and PNA was noted on a CXR. Given her SOB, she was sent to the ED for further eval. No n/v. Pt has never been sick like this in the past. No recent travel other than to her parents' home and [place]. No sick contacts. Pt denies chest pain, abd pain, n/v/c/d, LE pain or swelling. Pt is s/p IVF and abx, nebs and steroids in the ED. She still feels generally unwell, but no further SOB and overall improved. Admission Exam Per Admitting Provider Constitutional: WD/WN, vitals as above Eyes: normal visual bowers by confrontation and + anicteric sclerae Neck: normal visual inspection and trachea midline Respiratory: normal respiratory effort; no respiratory distress Auscultation: + crackles; no wheezes Cardiovascular: Rate/Rhythm: regular rhythm and + tachycardic Gastrointestinal (Abdomen): Inspection/Auscultation: abdomen not distended Percussion/Palpation: abdomen soft; abdomen nontender Musculoskeletal: Head/Neck/Chest: normocephalic and head atraumatic negative for edema, peripheral pulses intact Skin: no rashes, warm and dry Neurologic: awake; not confused Speech / Cognition: normal speech Psychiatric: A+Ox3, euthymic affect Principal Diagnosis Multifocal Pneumonia Discharge Exam Constitutional WD/WN, vitals as above Eyes PERRL, conjunctivae normal, anicteric sclerae Neck trachea midline, no thyromegaly Respiratory normal respiratory effort; no respiratory distress and no labored breathing Auscultation: lungs clear to auscultation bilaterally and + diminished lung sounds Cardiovascular Rate/Rhythm: regular rhythm and + tachycardic Heart Sounds: + cardiac rub (faint rub heard with patient sitting forward) Skin no rashes, warm and dry Neurologic PERRL, EOMI, accommodation nl, no face palsy, no dysarthria Psychiatric A+Ox3, euthymic affect Discharge Data Allergies Allergy/AdvReac Type Severity Reaction Status Date / Time No Known Allergies Allergy Unverified 03/02/19 13:06 Consultations 03/02/19 14:48 ED Decision to Admit Stat 03/03/19 18:32 Consult Cardiology Routine Ordered Studies 03/02/19 12:03 CT ANGIOGRAPHY OF THE CHEST, PULMONARY EMBOLUS PROTOCOL FINDINGS: This exam is compromised by respiratory motion. No central or lobar pulmonary emboli are identified. The segmental and subsegmental pulmonary arteries are suboptimally assessed given respiratory motion. The size of the heart is normal. There is no thoracic aortic dissection. No enlarged thoracic lymph nodes are present. There is no pneumothorax or pleural effusion. Note is made of multiple foci of consolidation within the right middle lobe, bilateral lower lobe as well as the lingular. There are minimal right upper lobe airspace opacities. There is no cavitation. Lungs are suboptimally assessed given respiratory motion. Bony thorax is unremarkable. Upper abdomen is unremarkable. IMPRESSION: 1. No central or lobar pulmonary emboli. Segmental and subsegmental pulmonary arteries suboptimally assessed given significant respiratory motion. 2. Findings suggestive of multifocal pneumonia involving the bilateral lower lobes, right middle lobe and lingula. Hospital Course (1) Multifocal pneumonia: * Patient presented with shortness of breath and loss of appetite several days after development of a sore throat, fever and productive cough on 02/27. Ddimer negative. CTA done without evidence of PE, but identified multifocal pneumonia. Started on Zosyn/Vanco empirically. Duonebs Q4R. Guaifenesin. Supportive treatment with NSS @ 80cc/hr. Lactic negative. Lyme and flu negative. * EKG with sinus tachy 137bpm with diffuse T wave inversion on 03/02. Repeat EKG on 03/03 with SR 86bpm with continued inferior T wave inversion and dominique- lateral T wave inversion. Echo showed normal LV systolic function without evidence of pericardial effusion or wall motion abnormalities. Borderline prolapse of anterior mitral leaflet noted, but no significant mitral regurgitation. * Antibiotics were transitioned to Doxy and Ceftriaxone for community acquired pneumonia, and eventually transitioned to oral doxy for discharge. Preliminary blood cultures without growth at this time. (2) Pericarditis: * EKG with sinus tachy 137bpm with diffuse T wave inversion on 03/02. Repeat EKG on 03/03 with SR 86bpm with continued inferior T wave inversion and dominique-lateral T wave inversion. Echo showed normal LV systolic function without evidence of pericardial effusion or wall motion abnormalities. * Per cardiollgoy, will continue to treat with colchicine 0.6mg BID for 3 months. * Follow up with Dr. Willson to be set up by Dr. Willson (3) Mitral valve prolapse: * TTE done and shows left ventricular systolic function is normal. Normal diastolic function. * Borderline prolapse of the anterior mitral leaflet left. Total Time Total Time Spent Total Time Spent (In Minutes): 45 Discharge Plan Discharge Items Patient Disposition: Home - Self-Care Reason For Visit: PNA Discharge Diagnosis: Multifocal Pneumonia Goals: Close follow-up to monitor improvement Activity: Resume your previous activity Non-emergency contact: Primary Care Provider Call non-emergency contact if: you have any medication questions and your symptoms worsen Follow-up/Referrals: Pepe Willson MD [Physician] - 04/08/19 11:[address] [facility] [Primary Care Provider] - Diet: Regular Addtl Attending Provider Instructions: During this admission, you were found to have multi-focal pneumonia on CT. You were started initially on IV antibiotics and are being sent home with a prescription of doxycycline. Please take as directed and finish full course of the antibiotic. You have also been receiving duoneb breathing treatments during this hospitalization. You are being sent home on Xopenex HFA (levalbuterol inhaler) - you may take 2 puffs every 4-6 hours as needed for bronchospasm. You may also take over the counter mucinex to thin secretions if needed. You were also given colchicine for pericarditis at the recommendation of the registered nurse post partum. It is recommended that you continue to take this medication twice daily for three months. Dr Willson will be setting you up an appointment for follow-up with his office for your pericarditis as well as mitral valve prolapse found on echocardiogram. Please follow-up with your primary care provider in the next 48 hours to monitor improvement. You have been provided copies of your records as well as imaging during this admission. Please return to the closest emergency room if you develop worsening shortness of breath, chest pain or for any symptoms that are concerning for you. Pending Studies at Discharge: No Stand-Alone Forms: [employer], Work/School Release (Inpt), Smoking Cessation Medications and DC Order Prescriptions: New doxycycline hyclate 100 mg capsule 100 mg PO BID 7 Days Qty: 14 RF: 0 levalbuterol tartrate [Xopenex HFA] 45 mcg/actuation HFA aerosol inhaler 2 puffs INH Q6H PRN (Reason: shortness of breath) Qty: 15 RF: 0 colchicine [Colcrys] 0.6 mg Tablet 0.6 mg PO BID 90 Days Qty: 180 RF: 0 Continued Control 1 tab PO DAILY RF: 0 drospirenone-ethinyl estradiol 3-0.03 mg tablet RF: 0 Discharge Orders: Discharge Order (Routine); Ordered 03/04/19 Ordered By: Lizzette Niño/Other Patient Handouts: Pneumonia, Prolapse Mitral Valve Admission Data Admit Date/Time: 03/02/19 16:43 Attending Provider: Frankie Gold Admit Provider: Mila Zacarias Primary Care Provider: [facility] Other Providers: Pepe Willson Other Interventions: Discharge Summary Assessment (RN) Last Done: 03/04/19 12:17 DC Date/Time DO NOT enter until pt leaves facility: 03/04/19 15:47 Supervising Physician Co-Signing Physician Notes Attending Attestation and Discharge Note: Pt seen/examined, chart reviewed, care plan d/w SAMIRA Miller. I agree w/ the ivy components of her documentation. 18yo female who was admitted for b/l pneumonia and abnormal EKG. CTA chest showed the bilateral infiltrates. She was treated in the customary fashion with IV antibiotics and supportive care. Given her age, etc I suspect an atypical pathogen as the cause of her pneumonia. With respect to abnormal EKG - there was some question as to whether this represented EKG changes due to pericarditis. She did not have chest pain, however, and echo was normal with exception of trace mitral valve prolapse. Seen by cardiology - to be on safe side a 3-month course of colchicine was advised if indeed she had pericarditis. At discharge she will complete a course of oral doxycycline for her pneumonia. Discharge exam: gen - NAD, nontoxic mouth - ulcerations roof of palate; MMM heart - tachy, s1 s2, no murmur; no rub lungs - scant rales bases, no wheeze, no increased work of breathing abd - soft NT ND BS+; no HSM ext - no edema Copies of echo and CT given to patient at discharge. Frankie Gold MD
--- NOTE | 2019-03-04 14:22 | Cardiology Consultation ---
Date of Consultation March 04, 2019 Assessment & Plan (1) Abnormal ECG: Her electrocardiogram was quite abnormal on presentation with inferolateral T wave inversion. Her echocardiogram however is unremarkable and repeat electrocardiograms both 24 and 48 hours after her initial both show s imilar findings although the most recent electrocardiogram is somewhat improved. Cardiac enzymes were negative therefore there is no evidence that she has a myocarditis. She did not have classic symptoms of pericarditis but I think it is most likely that this represents subclinical pericarditis, possibly from a viral infection that she had perhaps preceding her pneumonia. Options are to do nothing and observe, versus treating her for pericarditis. My recommendation would be to treat her for pericarditis as that is the most likely cause of these T wave abnormalities, I would recommend colchicine 0.6 mg twice daily for 3 months. If she has or develops chest discomfort I would use an NSAID, I generally use ibuprofen, but in the absence of chest discomfort I would not use it. I would plan on repeating the electrocardiogram in a month, possibly with an echocardiogram but if the electrocardiogram normalizes that may not be necessary. Certainly if she has a change in her symptoms before that we should reevaluate the situation. I have scheduled her for a one-month follow-up visit and I have entered the appointment in her discharge instructions which includes I will contact [facility]. (2) Mitral valve prolapse: She has mild mitral valve prolapse, it is not associated with significant regurgitation and I do not hear a murmur, I would not do anything further with this. It is probably of no consequence. (3) Tachycardia: She has had intermittent tachycardia but not consistent, I believe that is appropriate for her age and her medical condition. I would not investigate further. 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 She thought it was a cold, however she had worsening of her symptoms over several days and noticed some shortness of breath and loss of appetite. She had difficulty walking due to shortness of breath and therefore went to [facility] where the pneumonia was identified on chest x-ray as well as an elevated d-dimer. She was therefore sent to the emergency room. She arrived here on March 02, 2019 and had an electrocardiogram done that day at 11:38 AM, this showed sinus tachycardia at 137 bpm with diffuse T wave inversion. A chest CTA was done here where no pulmonary emboli were identified, a multifocal pneumonia was felt to be present. She was therefore treated with antibiotics. A repeat electrocardiogram was done on March 03, 2019 at 1331 and this showed sinus rhythm at 86 bpm with continued inferior T wave inversion and dominique-late ral T wave inversion. Echocardiography done March 03, 2019 at 1339 showed normal left ventricular systolic function, no evidence of pericardial effusion and no wall motion abnormalities. She did have borderline prolapse anterior mitral leaflet but no significant mitral regurgitation. At the time of my evaluation today she was feeling much better. She denied having chest discomfort but did confirm that she had dyspnea on exertion which was unusual for her. She tends to be fairly active including going to the gym 2 or 3 times a week and was having no difficulty with that until she developed the symptoms last week. She has had no chest discomfort during her hospitalization. She has never had an electrocardiogram done before nor has she had any cardiac symptoms that she recalls. Allergies Allergy/AdvReac Type Severity Reaction Status Date / Time No Known Allergies Allergy Unverified 03/02/19 13:06 Home Medications Home Medications Medication Instructions Recorded Confirmed Type Control 1 tab PO DAILY 03/02/19 03/02/19 History drospirenone-ethinyl estradiol 03/02/19 History colchicine [Colcrys] 0.6 mg PO BID 90 Days #180 tab 03/04/19 Rx doxycycline hyclate 100 mg PO BID 7 Days #14 cap 03/04/19 Rx levalbuterol tartrate [Xopenex HFA] 2 puffs INH Q6H PRN #15 gm 03/04/19 Rx Patient History Medical History PCOS (polycystic ovarian syndrome) Surgical History No significant past surgical history Family History Grandfather (Maternal) Stroke Social History Preferred Language: Arabic Communication Ability: Effective Beliefs That Will Affect Care: None marital status: Single Current Living Situation Comment: 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 HEENT: Unremarkable Neck: No jugular venous distention, carotid pulses are normal and equal bilaterally without bruits. Pulmonary: Clear to auscultation bilaterally. Cardiac: Regular somewhat rapid rhythm with no murmur, gallop or rub. Abdomen: Soft, nontender with normal bowel sounds. Extremities: No edema. Distal pulses intact. Neurologic: No focal findings. Gait is steady. Skin: No rash, ecchymoses or petechiae. Results & Data Vital Signs (Past 12 Hours) Vital Signs Temp Pulse Pulse Pulse Resp BP Pulse Ox 03/04/19 12:17 36.6 C 108 H 120 H 103 H 16 118/72 94 03/04/19 11:19 108 H 16 94 03/04/19 08:14 36.6 C 120 H 16 118/72 95 03/04/19 06:59 104 H 16 95 03/04/19 03:27 110 H 16 95 Diagnostic Findings An electrocardiogram today demonstrates sinus tachycardia at 115 bpm, she has inferior and anterolateral T wave inversion with incomplete right bundle branch block pattern. The T wave seems somewhat improved compared to the prior to electrocardiograms. PG Care Time/CCT Total # of Minutes Spent Total Time Spent with Patient: Total time spent is greater than 50% in coordination of care (as documented) at patient's floor/unit and/or counseling patient:
[2019-03-05] MEDS ORDERED: COLCHICINE 0.6 MG TAB PO SCH (09:00)
--- NOTE | 2019-03-10 06:24 | Coding Query ---
To promote full compliance with coding requirements relating to patient care, provider participation is requested in all cases of telephone lineman uncertainty. Please assist us with the question(s) below: Coding Question(s): The diagnosis below was documented in the 03/03/19 Progress Note, then subsequently fell off all further documentation. Please indicate if it is still a possible diagnosis or ruled out. Physician's Response(s): UTI ( ) Diagnosed and POA ( ) Diagnosed and not POA ( x ) Ruled out ( ) Other (please specify) MTDD
== END 2019-03-04 15:47 | disposition home or self-care (01) | DRG 194 ==
LOC: ED 11:28 → SUATTDRO 16:43 → 3N 16:43